=== PATIENT | male | born 1975 | race Caucasian/White ===

== ENCOUNTER → 2017-03-07 | Outpatient (CLI) | payer BC ==
[~2017-03-07] MED LIST: Iopamidol 612 MG/ML 30 ML SDV IARTIC ONE; Sodium Chloride 0.9% Inhalation Soln 3 ML Neb INH ONE
--- NOTE | 2017-03-07 15:06 | CR ---
EXAMINATION: Fluoro guided right shoulder arthrogram. HISTORY: Shoulder pain. TECHNIQUE/PROCEDURE: Written informed consent was obtained from the patient . The site of the anterior rotator interval is marked under fluoroscopy. Under aseptic conditions usin g 1% lidocaine as local anesthesia 22-gauge spinal needle was introduced into the joint space. A sma ll amount of contrast test dose was injected which freely flowed into the joint space. Afterwards, 15 cc of cocktail consisting of saline, gadolinium and local lidocaine including CT contrast was adm inistered without difficulty. There was no passage of the contrast into the subacromial space. Most of the contrast is seen within the joint space and sub coracoid bursal region. IMPRESSION: Successful Fluoro guided right shoulder arthrogram without evidence for high-grade rotat or cuff tear.
--- NOTE | 2017-03-07 16:46 | MR ---
EXAMINATION: MRI arthrogram of the right shoulder HISTORY: Pain COMPARISON: None TECHNIQUE: Multiplanar and multisequence images obtained of the right shoulder following the intra-a rticular administration of MultiHance. FINDINGS: There is a type II acromion. 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 Ther e is a tiny partial-thickness tear of the supraspinatus tendon at the footplate. Infraspinatus tendo n appears grossly intact. The teres minor tendon is normal. The long head biceps tendon appears mild ly thinned however is present within the bicipital groove. The subscapularis tendon is intact. There is a subtle labral tear anteriorly extending superiorly to the approximate 11:00 position. The infe rior glenohumeral ligament is intact. The articular surfaces appear preserved. There is no muscular atrophy. Bone marrow signal appears grossly normal. IMPRESSION: 1. Small partial thickness tear of the supraspinatus tendon at the footplate 2. Glenoid labral tear anteriorly extending into the superior labrum without evidence of posterior e xtension.
== END | disposition home or self-care (01) ==
LOC: MW.DI 08:44
PROVIDERS: ATTEND Physician Assistant
DX: M75.101 Unspecified rotator cuff tear or rupture of right shoulder, not specified as traumatic (principal); S43.81XA Sprain of other specified parts of right shoulder girdle, initial encounter
CPT/HCPCS: 23350; 73222; 77002; Q9967